=== PATIENT | male | born 1955 | race Caucasian/White ===

== ENCOUNTER 2017-03-27 12:51 | Emergency (ER) | payer OTHER ==
[~2017-03-27] VITALS: Ht 182.9 cm; Wt 126.0 kg
[~2017-03-27 12:51] MED LIST: LISI2.5T3 PO; ZIAC106.25 PO
[2017-03-27 12:56] VITALS: BP 208/110; PULSE 70; RESP 16; TEMP 99.2; O2SAT 95
[2017-03-27 13:04] VITALS: BP 178/105; PULSE 71; RESP 16; O2SAT 96
[2017-03-27] MEDS ORDERED: LISI-515 PO (13:06)
[2017-03-27] MEDS ORDERED: NEXI20CA PO (13:06)
[2017-03-27] MEDS ORDERED: BISO10TA2 PO (13:06)
[2017-03-27] MEDS ORDERED: cloNIDine HCL 0.1 MG TAB PO ONE (13:15)
--- NOTE | 2017-03-27 13:18 | PD ---
HPI Chief Complaint: Hypertension Time Seen by Provider: 13:05 Travel History International Travel<30 days: No Contact w/Intl Traveler<30days: No Traveled to known affect area: No History of Present Illness HPI This 61-year-old male is complaining of high blood pressure. He has a history of hypertension and is on bisoprolol and lisinopril. He is usually well controlled. Yesterday he went to the [facility] in [place] and had repair of an umbilical hernia. He was nothing by mouth prior to the surgery. After the surgery his blood pressure was elevated and he was given his medication of bisoprolol and lisinopril. This morning he took his usual medication but his blood pressure has been elevated. He is having some right periorbital headache. It's a headache that he's had before. It is not severe. There has been no vomiting. There is no numbness or tingling. PFSH Past Medical History Autoimmune Disease: Yes (PSORIASIS) Diabetes: No Diminished Hearing: No Gastrointestinal Disorders: Yes (UMBILICAL HERNIA ) Hypertension: Yes Tetanus Vaccination: < 5 Years Past Surgical History Other Surgery: Yes (UMBILICAL HERNIA REPAIR YESTERDAY) Social History Alcohol Use: Yes (SOC) Tobacco Use: No Substance Use: No Allergies-Medications (Allergen,Severity, Reaction): Coded Allergies: No Known Allergies (Unverified , 03/27/17) Reported Meds & Prescriptions Reported Meds & Active Scripts Active Reported Lisinopril 20 Mg Tab 20 Mg PO DAILY Bisoprolol-Hydrochlorothiazide 10-6.25 Mg Tab 1 Tab PO DAILY Nexium (Esomeprazole DR) 20 Mg Capdr 20 Mg PO DAILY Review of Systems General / Constitutional: No: Fever, Chills Eyes: No: Diploplia, Blurred Vision, Foreign Body Sensation HENT: Positive: Headaches, No: Rhinorrhea Cardiovascular: No: Chest Pain or Discomfort, Palpitations Respiratory: No: Cough, Shortness of Breath Gastrointestinal: Positive: Abdominal Pain, No: Vomiting, Diarrhea Genitourinary: No: Urgency, Frequency Musculoskeletal: No: Myalgias, Arthralgias Skin: No Rash, No Itching Neurologic: No: Weakness, Dizziness Psychiatric: No: Anxiety Endocrine: No: Heat Intolerance Hematologic/Lymphatic: No: Easy Bruising Physical Exam Narrative GENERAL: Male SKIN: Focused skin assessment warm/dry. HEAD: Atraumatic. Normocephalic. EYES: Pupils equal and round. No scleral icterus. No injection or drainage. ENT: No nasal bleeding or discharge. Mucous membranes pink and moist. NECK: Trachea midline. No JVD. CARDIOVASCULAR: Regular rate and rhythm. No murmur appreciated. RESPIRATORY: No accessory muscle use. Clear to auscultation. Breath sounds equal bilaterally. GASTROINTESTINAL: Abdomen soft, there is a bandage over the umbilicus., nondistended. Hepatic and splenic margins not palpable. MUSCULOSKELETAL: No obvious deformities. No clubbing. No cyanosis. No edema. NEUROLOGICAL: Awake and alert. No obvious cranial nerve deficits. Motor grossly within normal limits. Normal speech. PSYCHIATRIC: Appropriate mood and affect; insight and judgment normal. Data Data Last Documented VS Vital Signs Date Time Temp Pulse Resp B/P (MAP) Pulse Ox O2 Delivery O2 Flow Rate FiO2 03/27/17 13:04 71 16 178/105 (129) 96 Room Air 03/27/17 12:56 99.2 Orders Orders Complete Blood Count With Diff (03/27/17 13:15) Basic Metabolic Panel (Bmp) (03/27/17 13:15) Clonidine (Catapres) (03/27/17 13:15) Labs Laboratory Tests Test 03/27/17 13:20 White Blood Count 11.1 TH/MM3 Red Blood Count 4.41 MIL/MM3 Hemoglobin 13.5 GM/DL Hematocrit 38.9 % Mean Corpuscular Volume 88.3 FL Mean Corpuscular Hemoglobin 30.6 PG Mean Corpuscular Hemoglobin Concent 34.7 % Red Cell Distribution Width 12.6 % Platelet Count 191 TH/MM3 Mean Platelet Volume 8.6 FL Neutrophils (%) (Auto) 67.8 % Lymphocytes (%) (Auto) 20.2 % Monocytes (%) (Auto) 8.3 % Eosinophils (%) (Auto) 0.5 % Basophils (%) (Auto) 3.2 % Neutrophils # (Auto) 7.5 TH/MM3 Lymphocytes # (Auto) 2.2 TH/MM3 Monocytes # (Auto) 0.9 TH/MM3 Eosinophils # (Auto) 0.1 TH/MM3 Basophils # (Auto) 0.4 TH/MM3 CBC Comment DIFF FINAL Differential Comment Blood Urea Nitrogen 24 MG/DL Creatinine 1.10 MG/DL Random Glucose 130 MG/DL Calcium Level 9.4 MG/DL Sodium Level 138 MEQ/L Potassium Level 4.0 MEQ/L Chloride Level 101 MEQ/L Carbon Dioxide Level 27.5 MEQ/L Anion Gap 10 MEQ/L Estimat Glomerular Filtration Rate 68 ML/MIN MDM Medical Decision Making Medical Screen Exam Complete: Yes Emergency Medical Condition: Yes Medical Record Reviewed: Yes Differential Diagnosis Differential includes electrolyte imbalance, hypertension, Narrative Course Lab work was tested and his potassium is normal. He was given clonidine and his blood pressure has come down. We will prescribe some clonidine for him to use at home. He appears very reliable and does measure his own blood pressure and seems prone to occasional spikes. This particular spike appears to be of been triggered by surgery and perhaps she got a saline load during the surgery or perhaps it is induced by the stress of the surgery. Diagnosis Primary Impression: Hypertension Additional Instructions: Take clonidine as needed for blood pressure over 160/100 Scripts Clonidine (Catapres) 0.1 Mg Tab 0.1 MG PO ONCE for Blood Pressure Management, #10 TAB 0 Refills Prov: Tito Allen MD 03/27/17 Disposition: 01 DISCHARGE HOME Condition: Stable Tito Allen MD Mar 27, 2017 13:18
[2017-03-27 13:26] LABS: AUTOMATED NEUTROPHIL # 7.5 TH/MM3 (1.8-7.7); BASOPHIL # 0.4 TH/MM3 (0-0.2); BASOPHIL % 3.2 % (0.0-2.0); EOSINOPHIL # 0.1 TH/MM3 (0-0.4); EOSINOPHIL % 0.5 % (0.0-4.0); HEMATOCRIT 38.9 % (39.0-51.0); HEMO FLAGS DIFF FINAL; LYMPH % 20.2 % (9.0-44.0); LYMPHOCYTE # 2.2 TH/MM3 (1.0-4.8); MEAN CELL VOLUME 88.3 FL (80.0-100.0); MEAN CORPUSCULAR HEMOGLOBIN 30.6 PG (27.0-34.0); MEAN CORPUSCULAR HGB CONC 34.7 % (32.0-36.0); MONO % 8.3 % (0.0-8.0); NEUT % 67.8 % (16.0-70.0); PLATELET COUNT 191 TH/MM3 (150-450); RED BLOOD COUNT 4.41 MIL/MM3 (4.50-5.90); RED CELL DISTRIBUTION WIDTH 12.6 % (11.6-17.2); WHITE BLOOD COUNT 11.1 TH/MM3 (4.0-11.0)
[2017-03-27 13:37] LABS: BICARBONATE 27.5 MEQ/L (21.0-32.0)
[2017-03-27 14:19] VITALS: BP 158/94
[2017-03-27] MEDS ORDERED: CLON.1 PO (14:23)
== END 2017-03-27 15:04 | disposition home or self-care (01) ==
LOC: PHED 12:51
DX: I10 Essential (primary) hypertension (principal); R51 Headache; Z98.890 Other specified postprocedural states; Z87.2 Personal history of diseases of the skin and subcutaneous tissue; Z87.19 Personal history of other diseases of the digestive system
CPT/HCPCS: 80048; 85025; 99283